=== PATIENT | male | born 1980 | race Caucasian/White ===

== ENCOUNTER 2020-09-19 15:55 | Emergency (ER) | payer MEDICARE, OTHER ==
[~2020-09-19] VITALS: Ht 170.2 cm; Wt 89.4 kg
[2020-09-19 15:55] VITALS: BP 109/74
[2020-09-19] MEDS ORDERED: IV NORMAL SALINE 1,000ML 1,000 ML IV ONE (16:30)
[2020-09-19] MEDS ORDERED: IV NORMAL SALINE 1,000ML 1,000 ML IV SCH (16:30)
--- NOTE | 2020-09-19 17:12 | EKG ---
[address] [address] Test Date: 2020-09-19 Test Time: 16:39:42 Pat Name: RADHA SHAH Department: Room: Gender: M Grades 1 6 Tutor: PRATEEK : 1980 Requested By: HARDIK IRBY Order Number: [id number] Reading MD: Measurements Intervals [place] Rate: 100 P: AR: QRS: 21 QRSD: 92 T: 42 QT: 394 QTc: 512 Interpretive Statements ACCELERATED JUNCTIONAL RHYTHM QRS(T) CONTOUR ABNORMALITY CONSIDER INFERIOR INFARCT ABNORMAL ECG RI6.02 No previous ECG available for comparison
--- NOTE | 2020-09-19 17:28 | RAD ---
XR CHEST 1V History: Reason: sepsis / Spl. Instructions: / History: Comparison: August 05, 2020 Findings: Linear left basilar atelectasis. Postoperative changes thoracolumbar spine. No consolidation or pleur al effusion. No pneumothorax. Normal heart size. Impression: 1. Mild left basilar linear atelectasis. Electronically signed by: David Cárdenas DO (09/19/2020 5:26 PM) [id number]
[2020-09-19] MEDS ORDERED: IOHEXOL 300 MG/ML 75 ML VIAL. IV ONE (18:00)
[2020-09-19] MEDS ORDERED: HYDROmorphone PF 2 MG/ML VIAL IVP ONE (18:15)
[2020-09-19 18:29] LABS: BASO # 0.1 x10^3/uL (0.0-0.2); BASO % 1 % (0-3); EOS # 0.6 x10^3/uL (0.0-0.7); EOS % 7 % (0-3); HEMOGLOBIN 11.5 g/dL (13.0-17.5); LYMPH # 2.2 x10^3/uL (1.0-4.8); LYMPH % 23 % (24-48); MEAN CORPUSCULAR HEMOGLOBIN 23 pg (25-35); MEAN CORPUSCULAR HGB CONC 31 g/dL (31-37); MEAN CORPUSCULAR VOLUME 73 fL (79-100); MONO # 0.6 x10^3/uL (0.0-1.1); MONO % 6 % (0-9); NEUT # 6.1 x10^3uL (1.8-7.7); NEUT % 64 % (31-73); PLATELET COUNT 284 x10^3/uL (140-400); RED BLOOD COUNT 5.07 x10^6/uL (4.30-5.70); RED CELL DISTRIBUTION WIDTH 23.9 % (11.5-14.5); WHITE BLOOD COUNT 9.5 x10^3/uL (4.0-11.0)
[2020-09-19] MEDS ORDERED: HYDROmorphone PF 2 MG/ML VIAL IM ONE (18:30)
[2020-09-19 18:47] LABS: ALBUMIN 2.1 g/dL (3.4-5.0); CALCIUM 8.1 mg/dL (8.5-10.1); CREATININE 0.8 mg/dL (0.7-1.3); DIRECT BILIRUBIN 0.1 mg/dL (0.0-0.2); GFR 107.6; MAGNESIUM 1.6 mg/dL (1.8-2.4); TOTAL BILIRUBIN 0.1 mg/dL (0.2-1.0); TOTAL PROTEIN 6.9 g/dL (6.4-8.2)
--- NOTE | 2020-09-19 18:47 | RAD ---
CT abdomen pelvis with contrast dated 09/19/2020. No comparison available. Clinical data indication: Infected sacral ulcers. Rule out abscess. TECHNIQUE: Contiguous axial imaging the M pelvis performed after the administration of 53 cc Isovue-370. One or more of the following individualized dose reduction techniques were utilized for this examinat ion: 1. Automated exposure control 2. Adjustment of the mA and/or kV according to patient size 3. Use of iterative reconstruction technique FINDINGS: There is a prominent decubitus ulcers at the left greater than right ischial tuberosity and at the po sterior left femur near the trochanteric region that appear to extend to cortical bone. There is blun cyn morphology of the right ischial tuberosity without acute inflammatory change. There are some scle rotic changes of the left ischial tuberosity with irregularity of the cortex. Mild focal thinning of the posterior cortex of the proximal left femur. There is severe erosive changes of the femoral head and neck on the left and the left femur is disloc ated posteriorly and superiorly relative to the acetabulum. There is a moderate size joint effusion w ith multiple intra-articular loose bodies. There are also resorptive erosive changes and remodeling o f the acetabulum. Evidence of prior right hip nailing. Mild degenerative change of the right hip join t. There are spondylotic changes of the thoracolumbar spine with evidence of prior thoracolumbar fusi on. Limited images of lung bases show linear bands of increased density in the lower lobes, likely scar o r atelectasis. Small left pleural effusion. Heart size is upper limits of normal. No pericardial effu cm. Solid abdominal viscera not well evaluated in the absence of contrast material. No apparent attenuati on abnormality of the liver or spleen. The spleen is mildly enlarged. Pancreas, adrenal glands and ki dneys are unremarkable. No hydronephrosis. Calcified stones in the gallbladder. There is a colostomy in the right upper quadrant. GI tract is otherwise normal in caliber and contour . No bowel wall thickening. No inflammatory stranding in the mesentery. No significant ascites. There is an IVC filter in place. Borderline enlarged retroperitoneal and bilateral common iliac chain and bilateral external iliac chain and inguinal lymph nodes measuring up to 1.2 cm short axis. There is mild diffuse wall thickening of the urinary bladder. Suprapubic catheter in place. Prostate gland is normal in size. No free fluid. There is severe generalized muscle atrophy and volume loss. IMPRESSION: 1. There are acute is also is at the bilateral ischial tuberosity and posterior left femur which appe ar to extend to cortical bone. There is findings to suggest chronic or remote osteomyelitis of the ri ght initial tuberosity. Changes at the left ischial tuberosity and proximal left femur may be subacut e or acute. No drainable abscess. 2. Severe destructive change at the left hip with complete erosion of the femoral head and neck and p osterior superior dislocation of the left hip joint. There is an moderate sized complex joint effusio n. This could be related to chronic septic joint or neuropathic joint. Correlate clinically. 3. Diffuse wall thickening of the urinary bladder. Consider acute or chronic cystitis. 4. 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 There are multiple venous collaterals at t he retroperitoneum and along the bilateral iliac chain. There are also borderline enlarged retroperit torrez and iliac chain and inguinal lymph nodes that are nonspecific. 5. Cholelithiasis. Electronically signed by: Bon Chavira MD (09/19/2020 6:45 PM) [facility]
[2020-09-19 18:54] LABS: POTASSIUM 2.9 mmol/L (3.5-5.1)
[2020-09-19] MEDS ORDERED: POTASSIUM CHLORIDE 20 MEQ TABLET.ER. PO ONE (19:00)
--- NOTE | 2020-09-19 19:14 | PHYS DOC ---
Past History Past Medical History: Other Additional Past Medical Histor: paraplegia, PE, MRSA, Cellulitis, pressure ulcer sacral region, osteomyliti Past Surgical History: Other Additional Past Surgical Histo: vascular implants and grafts, IVF filter, osteotomy, suprapubic catheter Alcohol Use: None General Adult EDM: Chief Complaint: ALLERGIC REACTION HPI: HPI: 40-year-old male past medical history of spinal cord injury and paraplegia with chronic suprapubic catheter, stage IV sacral decubitus ulcers, currently being treated with oral Flagyl for C. difficile infection, [facility], concern for allergic reaction after intramuscular Unasyn dose given around noon today. On arrival pt upset that he's in the ed stating "I'm not allergic to penicillin, I only felt--." Has no h/o angioedema, anaphylaxis or urticaria. Is upset he had wound cultures drawn weeks ago and IM abx started now. States he was admitted to [facility] in the past few weeks. I briefly reviewed facility documents that were sent over from [place] (large packet). Patient had a positive wound culture from his sacral decubitus ulcer on September 03, resulted 09/08 (pt does not know who ordered this test). RN notes report that patient was requesting oxycodone before he received this IM injection. Patient was given IM oxycodone 30 mg around 11 AM and accepted his Unasyn injection shortly after. Patient later complained of right arm pain and feeling [] - specific word pt said was the same word rn documented in transfer notes. RN looked at his arm which was red and raised/swollen, called Dr. Haley who recommended Benadryl. Patient refused Benadryl and was sent to the ED concerning for multi drug resistant infection. Patient reports she took oral Flagyl earlier today and the frequency of his ostomy (ostomy placed around 1.5 yrs ago) output has significantly improved with this medication. Pt states his HR is normal for him and when he's really sick (which he tells me he's not "I know when I'm sick"), his HR goes to 200 (requires to electrical or medication to slow his heart rate). Documents also report manipulative and drug-seeking behavior. Review of Systems: Review of Systems: Constitutional: Denies fever or chills Eyes: Denies change in visual acuity HENT: Denies nasal congestion or sore throat or difficulties breathing Respiratory: Denies cough or shortness of breath Cardiovascular: Denies chest pain or edema GI: Denies abdominal pain, nausea, vomiting, bloody stools or diarrhea : Denies dysuria or hematuria Musculoskeletal: Denies back pain or joint pain Integument: Denies rash, desquamation, blisters or diaphoresis Neurologic: Denies headache, focal weakness or sensory changes Endocrine: Denies polyuria or polydipsia Lymphatic: Denies swollen glands Psychiatric: Denies depression or anxiety Current Medications: Current Meds: Current Medications Medications (Trade) Dose Ordered Sig/Belén Start Time Stop Time Status Last Admin Dose Admin Hydromorphone HCl (Dilaudid) 2 mg 1X ONCE 09/19/20 18:30 09/19/20 18:31 DC 09/19/20 18:27 2 MG Iohexol (Omnipaque 300 Mg/ml) 75 ml 1X ONCE 09/19/20 18:00 09/19/20 18:01 DC 09/19/20 18:17 75 ML Sodium Chloride 1,000 ml @ 1,000 mls/hr 1X ONCE 09/19/20 16:30 09/19/20 17:29 DC Allergies: Allergies: Allergies Coded Allergies Type Severity Reaction Last Updated Verified amoxicillin Allergy Unknown 09/19/20 Yes ciprofloxacin Allergy Unknown 09/19/20 Yes doxycycline Allergy Unknown 09/19/20 Yes linezolid Allergy Unknown 09/19/20 Yes Physical Exam: PE: Constitutional: Patient no acute distress, is nontoxic appearing, unkept chronically-ill appearance HENT: Normocephalic, atraumatic, no angioedema Eyes: EOMI, conjunctiva normal, no discharge. Neck: Normal range of motion, supple, no nuchal rigidity or meningismus Cardiovascular: S1/2 present, mild sinus tachycardia Lungs & Thorax: Speaking in full sentences, bilateral equal chest rise, no tachypnea or increased work of breathing, no drooling, is controlling secretions Abdomen: soft, no tenderness, lower abdomen with colostomy bag Skin: Warm, dry, Back: No midline tenderness, no CVA tenderness, very large 18x12 cm stage 4 sacral decubitus ulcer with purulent malodorous drainage, no active bleeding, - no appreciable tenderness with palpation, no rash or tenderness of perineum Extremities: No tenderness, no cyanosis, bl edematous feet in pressure boots, right shoulder injection site with no erythema/discoloration/Nikolsky's sign/swelling/yufyndnml-axvrgg-hgbdzrthc injection site Neurologic: Alert and oriented X 3, normal motor function, normal sensory function, no focal deficits noted. [] Psychologic: Affect-apathy, judgement normal, mood normal. [] Current Patient Data: Labs: Laboratory Tests Test 09/19/20 17:45 White Blood Count 9.5 x10^3/uL (4.0-11.0) Red Blood Count 5.07 x10^6/uL (4.30-5.70) Hemoglobin 11.5 g/dL (13.0-17.5) L Hematocrit 37.0 % (39.0-53.0) L Mean Corpuscular Volume 73 fL (79-100) L Mean Corpuscular Hemoglobin 23 pg (25-35) L Mean Corpuscular Hemoglobin Concent 31 g/dL (31-37) Red Cell Distribution Width 23.9 % (11.5-14.5) H Platelet Count 284 x10^3/uL (140-400) Neutrophils (%) (Auto) 64 % (31-73) Lymphocytes (%) (Auto) 23 % (24-48) L Monocytes (%) (Auto) 6 % (0-9) Eosinophils (%) (Auto) 7 % (0-3) H Basophils (%) (Auto) 1 % (0-3) Neutrophils # (Auto) 6.1 x10^3uL (1.8-7.7) Lymphocytes # (Auto) 2.2 x10^3/uL (1.0-4.8) Monocytes # (Auto) 0.6 x10^3/uL (0.0-1.1) Eosinophils # (Auto) 0.6 x10^3/uL (0.0-0.7) Basophils # (Auto) 0.1 x10^3/uL (0.0-0.2) Platelet Estimate Pending Prothrombin Time 11.0 SEC (9.4-11.4) Prothrombin Time INR 1.1 (0.9-1.1) Activated Partial Thromboplast Time 29 SEC (23-33) Lactic Acid Level 1.4 mmol/L (0.4-2.0) Troponin I Quantitative < 0.017 ng/mL (0-0.055) Vital Signs: Vital Signs Date Time Temp Pulse Resp B/P (MAP) Pulse Ox O2 Delivery O2 Flow Rate FiO2 09/19/20 18:27 16 09/19/20 15:55 97.9 105 109/74 (86) 100 Room Air EKG: EKG: [] Radiology/Procedures: Radiology/Procedures: [] Heart Score: C/O Chest Pain: No Risk Factors: Risk Factors: DM, Current or recent (<one month) smoker, HTN, HLP, family history of CAD, obesity. Risk Scores: Score 0 - 3: 2.5% MACE over next 6 weeks - Discharge Home Score 4 - 6: 20.3% MACE over next 6 weeks - Admit for Clinical Observation Score 7 - 10: 72.7% MACE over next 6 weeks - Early Invasive Strategies Course & Med Decision Making: Course & Med Decision Making Pertinent Labs and Imaging studies reviewed. (See chart for details) 40-year-old male with current C. difficile infection on Flagyl (which has been improved patient's diarrhea, patient has no abdominal pain) now with MDR gram positive cocci, only sensitive to unasyn. ED transfer was concerned for allergic reaction, patient refused any treatment for this. Physical exam not consistent with any allergic reaction but given his heart rate +cdiff + MDRO infection, sepsis evaluation was initiated including CT abdomen pelvis to evaluate for infection source. Pt had been tx'ed with oral flagyl and IM unasyn earlier today. Due to shift change patient is signed out to Dr. Patel for further medical management disposition. Labs and imaging pending. [place] Disclaimer: [place] Disclaimer: This electronic medical record was generated, in whole or in part, using a voice recognition dictation system. Departure Departure: Referrals: PCP,SHONDA (PCP) HARDIK IRBY DO Sep 19, 2020 19:14
[2020-09-19] MEDS: POTASSIUM CHLORIDE 20MEQ 100 ML IV SCH ×2 (19:34→20:47)
[2020-09-19 20:02] LABS: ANISOCYTOSIS SLIGHT; HYPOCHROMIA MOD; MICROCYTOSIS SLIGHT; PLT ESTIMATE ADEQUATE (ADEQUATE); POLYCHROMASIA SLIGHT
[2020-09-19 21:32] LABS: AMORPHOUS SEDIMENT,UR PRESENT /HPF; BACTERIA,URINE MANY /HPF (0-FEW); BILIRUBIN,URINE NEG (NEG); CLARITY,URINE CLOUDY; COLOR,URINE AMBER; GLUCOSE,URINE NEG (NEG); NITRITE,URINE NEG (NEG); RBC,URINE OCC /HPF (0-2); SQUAMOUS EPITHELIAL CELL,UR FEW /LPF; UROBILINOGEN,URINE 0.2 mg/dL (0.2 mg/dL); WBC,URINE 20-40 /HPF (0-4); YEAST,URINE PRESENT /HPF
[2020-09-19 21:36] LABS: AMPHETAMINE/METHAMPHETAMINE NEG (NEG); BARBITURATES NEG (NEG); BENZODIAZEPINES POS (NEG); CANNABINOIDS NEG (NEG); COCAINE NEG (NEG); METHADONE NEG (NEG); OPIATES POS (NEG); PHENCYCLIDINE NEG (NEG)
[2020-09-19] MEDS ORDERED: POTA20TA4 PO (22:35)
== END 2020-09-20 00:33 | disposition home or self-care (01) ==
LOC: ER 15:55
DX: M86.60 Other chronic osteomyelitis, unspecified site (principal); T36.0X5A Adverse effect of penicillins, initial encounter; E46 Unspecified protein-calorie malnutrition; Z68.30 Body mass index [BMI] 30.0-30.9, adult; E87.6 Hypokalemia; D64.9 Anemia, unspecified; R33.9 Retention of urine, unspecified; G82.20 Paraplegia, unspecified; F17.200 Nicotine dependence, unspecified, uncomplicated; Z76.5 Malingerer [conscious simulation]; Z86.711 Personal history of pulmonary embolism; Z88.1 Allergy status to other antibiotic agents; Y92.89 Other specified places as the place of occurrence of the external cause
CPT/HCPCS: 36415; 71045; 74177; 80048; 80076; 80307; 81001; 82550; 83605; 83690; 83735; 83880; 84484; 85025; 85610; 85730; 87040; 87077; 87086; 93005; 96361; 96365; 96366; 96372; 99285; J1170; J3480; J7030; Q9967

== ENCOUNTER 2020-11-02 16:43 | Emergency (ER) | payer MEDICARE, OTHER ==
[~2020-11-02] VITALS: Ht 170.2 cm; Wt 97.4 kg
[~2020-11-02 16:43] MED LIST: POTA20TA4 PO
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
[2020-11-02] MEDS ORDERED: IOHEXOL 350 MG/ML 100 ML VIAL. IV ONE (17:15)
[2020-11-02 17:45] LABS: BASO # 0.1 x10^3/uL (0.0-0.2); BASO % 1 % (0-3); EOS # 0.2 x10^3/uL (0.0-0.7); EOS % 2 % (0-3); HEMATOCRIT 38.4 % (39.0-53.0); HEMOGLOBIN 12.1 g/dL (13.0-17.5); LYMPH # 1.5 x10^3/uL (1.0-4.8); LYMPH % 20 % (24-48); MEAN CORPUSCULAR HEMOGLOBIN 25 pg (25-35); MEAN CORPUSCULAR HGB CONC 32 g/dL (31-37); MEAN CORPUSCULAR VOLUME 79 fL (79-100); MONO # 0.9 x10^3/uL (0.0-1.1); MONO % 12 % (0-9); NEUT # 4.9 x10^3uL (1.8-7.7); NEUT % 65 % (31-73); PLATELET COUNT 266 x10^3/uL (140-400); RED BLOOD COUNT 4.88 x10^6/uL (4.30-5.70); WHITE BLOOD COUNT 7.5 x10^3/uL (4.0-11.0)
--- NOTE | 2020-11-02 17:47 | EKG ---
[address] [address] Test Date: 2020-11-02 Test Time: 16:50:52 Pat Name: RADHA SHAH Department: Room: Gender: M [employer]: : 1980 Requested By: KERRI COON Order Number: [id number] Reading MD: Measurements Intervals [place] Rate: 103 P: 9 [place]: 148 QRS: 11 QRSD: 84 T: 36 QT: 348 QTc: 458 Interpretive Statements SINUS TACHYCARDIA INCOMPLETE RIGHT BUNDLE BRANCH BLOCK QRS(T) CONTOUR ABNORMALITY CONSIDER INFERIOR INFARCT POSSIBLY ABNORMAL ECG RI6.02 No previous ECG available for comparison
[2020-11-02 18:07] LABS: ALBUMIN 2.7 g/dL (3.4-5.0); ALBUMIN/GLOBULIN RATIO 0.5 (1.0-1.7); CALCIUM 8.5 mg/dL (8.5-10.1); CREATININE 0.8 mg/dL (0.7-1.3); GFR 107.6; POTASSIUM 4.2 mmol/L (3.5-5.1); TOTAL BILIRUBIN 0.4 mg/dL (0.2-1.0); TOTAL PROTEIN 7.7 g/dL (6.4-8.2)
--- NOTE | 2020-11-02 19:22 | RAD ---
PQRS Compliance Statement: One or more of the following individualized dose reduction techniques were utilized for this examinat ion: 1. Automated exposure control 2. Adjustment of the mA and/or kV according to patient size 3. Use of iterative reconstruction technique CTA CHEST 11/02/2020 5:01 PM Indication: Chest pain, dyspnea COMPARISON: None available TECHNIQUE: Multiple axial CT images of the chest were obtained after intravenous administration of no nionic contrast. Coronal and sagittal reformats are provided. Maximum intensity projection images are noted. FINDINGS: Thyroid gland is normal in appearance. No pathologically enlarged thoracic lymph nodes. Heart size ricco rderline enlarged. Moderate pericardial effusion. Thoracic aorta is normal in course and caliber. The re is adequate opacification of the pulmonary arterial system. No filling defects are identified sugg esting acute or chronic pulmonary emboli. Main pulmonary artery measures 3.3 cm. Ascending thoracic a renee is normal in course and caliber. Mild pulmonary vascular congestion. Small left and trace right pleural effusions with adjacent compre ssive atelectasis versus infiltrates. No pneumothorax. Upper abdomen is normal. No suspicious osseous abnormality. Posterior fusion is identified within the mid to lower thoracic spine. IMPRESSION: No evidence for acute or chronic pulmonary embolism. Congestive heart failure with moderate pericardial effusion, small left and trace right pleural effus ions. There is adjacent compressive atelectasis versus infiltrates. Mild pulmonary vascular congestio n. Electronically signed by: Oanh Stewart MD (11/02/2020 7:19 PM) [facility]
[2020-11-02] MEDS ORDERED: VANCOMYCIN 2 GM in IV NORMAL SALINE 500ML 500 ML IV ONE (20:00)
[2020-11-02] MEDS ORDERED: IV NORMAL SALINE 50ML 50 ML ONE (20:29)
[2020-11-02] MEDS ORDERED: CEFEPIME HCL 1 GM VIAL ONE (20:29)
[2020-11-02] MEDS ORDERED: CEFEPIME HCL 1 GM in IV NORMAL SALINE 50ML 50 ML IV SCH (20:30)
[2020-11-02] MEDS ORDERED: IV NORMAL SALINE 500ML 500 ML ONE (20:56)
[2020-11-02] MEDS ORDERED: VANCOMYCIN 1 GM VIAL. ONE (20:56)
[2020-11-02] MEDS ORDERED: MORPHINE SULFATE 2 MG/ML DISP.SYRIN. IV ONE (21:00)
[2020-11-02] MEDS ORDERED: MORPHINE SULFATE 4 MG/ML DISP.SYRIN. IV ONE (21:00)
[2020-11-02 21:20] VITALS: BP 119/72
== END 2020-11-02 22:07 | disposition short-term general hospital (02) ==
LOC: ER 16:43
DX: I31.3 Pericardial effusion (noninflammatory) (principal); L03.116 Cellulitis of left lower limb; L03.115 Cellulitis of right lower limb; J90 Pleural effusion, not elsewhere classified; L89.90 Pressure ulcer of unspecified site, unspecified stage; R07.89 Other chest pain; Z88.1 Allergy status to other antibiotic agents; Z88.6 Allergy status to analgesic agent
CPT/HCPCS: 36415; 71275; 80053; 83605; 83880; 84484; 85025; 85379; 85610; 87040; 93005; 96365; 96367; 96375; 99285; J0692; J2270; J3010; J3370; J7040